=== PATIENT | female | born 1980 | race Hispanic/Latino ===

== ENCOUNTER 2019-09-05 23:12 | Emergency (ER) | payer MEDICAID, OTHER ==
[2019-09-05] MEDS ORDERED: ASPIRIN 325 MG TABLET ONE (23:34)
[2019-09-05 23:39] LABS: BASOPHILS % (AUTO) 0.4 % (0.0-5.0); HEMATOCRIT 41.8 % (36-48); LYMPHOCYTES % (AUTO) 21.3 % (21.0-51.0); MEAN CORPUSCULAR HEMOGLOBIN 30.4 pg (27.0-33.0); MEAN CORPUSCULAR HGB CONC 33.3 g/dL (32.0-36.0); MEAN CORPUSCULAR VOLUME 91.5 fL (79-99); MONOCYTES % (AUTO) 6.2 % (3.0-13.0); NEUTROPHILS % (AUTO) 70.7 % (40.0-77.0); PLATELET COUNT (AUTO) 299 K/uL (130-400); RED BLOOD CELL COUNT(AUTO) 4.57 MIL/uL (4.00-5.50); WHITE BLOOD COUNT (AUTO) 7.8 K/uL (4.8-10.8)
[2019-09-05 23:52] LABS: PARTIAL THROMBOPLASTIN TIME 27.3 SEC (26.3-35.5); PROTHROMBIN TIME 10.5 SEC (9.6-11.6)
[2019-09-06 00:19] LABS: CREATININE 0.7 mg/dL (0.5-1.5)
[2019-09-06 00:24] LABS: ALBUMIN 3.8 g/dL (3.5-5.0); BILIRUBIN,TOTAL 0.2 mg/dL (0.2-1.0); TOTAL PROTEIN, SERUM 8.3 g/dL (6.0-8.3)
== END 2019-09-06 01:07 ==
LOC: EDH 23:12
DX: R07.89 Other chest pain (principal); R11.2 Nausea with vomiting, unspecified; R00.2 Palpitations; Z72.0 Tobacco use
CPT/HCPCS: 36415; 71045; 80053; 82550; 84484; 84702; 85025; 85610; 85730; 93005; 99285; G0480

== ENCOUNTER → 2020-03-27 | Outpatient (CLI) | payer MEDICAID | END | disposition home or self-care (01) | LOC: RAH 13:16 | PROVIDERS: ATTEND Family Medicine | DX: S02.2XXA Fracture of nasal bones, initial encounter for closed fracture (principal); S02.32XD Fracture of orbital floor, left side, subsequent encounter for fracture with routine healing; S02.31XD Fracture of orbital floor, right side, subsequent encounter for fracture with routine healing; S02.92XA Unspecified fracture of facial bones, initial encounter for closed fracture; X58.XXXD Exposure to other specified factors, subsequent encounter; X58.XXXA Exposure to other specified factors, initial encounter; Y93.89 Activity, other specified; Y92.89 Other specified places as the place of occurrence of the external cause; Y99.8 Other external cause status | CPT/HCPCS: 70480; 70486 ==